=== PATIENT | female | born 2005 | race Caucasian/White ===

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

== ENCOUNTER → 2025-06-12 | Outpatient (CLI) | payer OTHER, SELFPAY ==
--- NOTE | 2025-06-12 09:25 | RAD_ITS ---
PROCEDURE: ARTHROGRAM SHOULDER W/ MRI 06/12/2025 REASON FOR EXAM: PAIN IN RIGHT SHOULDER, SPRAIN IN SHOULDER TECHNIQUE: Procedure Code: RADARS Modality: DX Procedure: ARTHROGRAM SHOULDER W/ MRI The procedure as well as the benefits and possible complications including infection and bleeding were explained to the patient. Informed consent was obtained. The patient was in the supine position. The overlying skin was prepped and draped in the usual sterile fashion. Following local anesthetic application, a 22 gauge spinal needle was placed into the shoulder joint. 2 cc of Isovue was injected for confirmation. Following this, 10 cc of dilute MRI contrast was injected. The patient tolerated the procedure well. Fluoroscopy: 52 seconds. Radiation dose: 7.9 mGy. 5 images were obtained. COMPARISON: None FINDINGS: Successful right shoulder arthrogram for MRI examination. RAD/Arthrogram Shoulder w/ MRI IMPRESSION: Successful right shoulder arthrogram for MRI examination. Reading Location: [place] [id number]
[2025-06-12] MEDS: Lidocaine 2% (5ml sdv) 5 ML VIAL.MPF INFILT (09:40)
[2025-06-12] MEDS: Gadoterate Meglumine Diluted 10 ML, Iopamidol 5 ML, Lidocaine 1% (20 ml mdv) 5 ML, Epin... INTRAARTIC (09:43)
[2025-06-12] MEDS: Iopamidol 10 ML in Syringe 1 EACH 600 ML INTRAARTIC (09:43)
--- NOTE | 2025-06-12 10:07 | MRI_ITS ---
PROCEDURE: UPPER EXT JT W/CONTRAST 06/12/2025 REASON FOR EXAM: PAIN, OTHER SPRAIN OF RT SHOULDER JOINT, INITIAL ENCOUNTER TECHNIQUE: Procedure Code: [id number] Modality: MR Procedure: Right shoulder MR arthrogram. COMPARISON: Right shoulder arthrogram images of 06/12/2025. FINDINGS: Intra-articular contrast is seen. A prominent tear involving the superior and anterior right glenoid labrum is seen. No abnormal osseous signal is noted. No significant arthritic process is otherwise evident. Mild infraspinatus tendinosis is seen. Very mild supraspinatus tendinosis is noted. No surfacing rotator cuff tear is seen. No tendon retraction is evident. Normal appearance of the long head of the biceps tendon is seen. MRI/Upper Ext Jt W/Contrast IMPRESSION: 1. Prominent tear involving the superior and anterior right glenoid labrum. 2. Mild infraspinatus tendinosis is seen. 3. Very mild supraspinatus tendinosis is noted. Reading Location: [id number]
== END | disposition home or self-care (01) ==
LOC: RAD 09:10
PROVIDERS: PCP Pediatrics; Referring Provider Physician Assistant Surgical; Visit Provider Physician Assistant Surgical
DX: S43.491A Other sprain of right shoulder joint, initial encounter (principal); M25.511 Pain in right shoulder
CPT/HCPCS: 23350; 73222; 77002; Q9967